=== PATIENT | female | born 1945 | race Asian ===

== ENCOUNTER 2016-11-12 19:15 | Observation (INO) | payer OTHER ==
[~2016-11-12] VITALS: Ht 165.1 cm; Wt 52.2 kg
[~2016-11-12 19:15] MED LIST: AMIT25TA22 PO; BACTRIM1 TAB PO; CLONAZEP ODT1 MG PO; CYCL10TA35 PO; DEMEROL50 MG PO; DIAZEPAM10 MG PO; DICY20TA34 PO; ENDOCET1 TA1 PO; FERROUS SULF325 M1 PO; FURO40TA93 PO; HYDR25TA60 PO; KLOR-CON M2020 MEQ PO; LABETALOL200 MG PO; LABETALOL300 MG OR; METO50TA27 PO; MOBIC7.5 M1 PO; MULTIVITAMI1 PO; PANT40TA PO; POTA20TA4 PO; REQUIP0.25 MG PO; RISP0.5T2 PO; SIMV20TA2 PO; TRAM50TA PO; XARELTO10 MG PO; ZESTRIL30 MG PO; ZESTRIL40 MG PO
[2016-11-12 19:45] VITALS: BP 137/76; TEMP 98.5
[2016-11-12] MEDS ORDERED: NUCYNTA75 MG PO (21:13)
[2016-11-12] MEDS ORDERED: ALPR0.2566 PO (21:13)
[2016-11-12] MEDS ORDERED: FURO20TA67 PO (21:14)
[2016-11-12] MEDS ORDERED: GRALISE600 MG OR (21:14)
[2016-11-12] MEDS ORDERED: AMITRIPTYLIN50 MG PO (21:15)
[2016-11-12] MEDS ORDERED: LABETALOL300 MG OR (21:15)
[2016-11-12] MEDS ORDERED: ONE DAILY ADULTS50 + OR (21:15)
[2016-11-12] MEDS ORDERED: NAMENDA10 MG OR (21:16)
[2016-11-12] MEDS ORDERED: LEXAPRO10 MG OR (21:17)
[2016-11-12 22:02] LABS: PLATELET COUNT 397 K/uL (152-353)
[2016-11-12 22:04] LABS: POTASSIUM 3.2 mmol/L (3.6-5.2)
[2016-11-13 02:24] VITALS: BP 154/68; TEMP 97.7; Ht 165.1 cm; Wt 52.2 kg
[2016-11-13 04:00] VITALS: BP 120/61; TEMP 98.6
[2016-11-13 08:14] VITALS: BP 130/65; TEMP 98.1
[2016-11-13 09:51] LABS: PLATELET COUNT 351 K/uL (152-353)
[2016-11-13 10:06] LABS: POTASSIUM 3.4 mmol/L (3.6-5.2); SODIUM 139 mmol/L (136-145)
[2016-11-13] MEDS ORDERED: FIORICET 50-3001 CAP PO (10:38)
[2016-11-13 11:59] VITALS: BP 131/69; TEMP 98
[2016-11-13 16:13] VITALS: BP 159/72; TEMP 98.1
[2016-11-13 20:00] VITALS: TEMP 98.1
[2016-11-14 01:03] VITALS: BP 119/73; TEMP 98.1
[2016-11-14 04:00] VITALS: BP 129/68; TEMP 98.1
[2016-11-14 05:00] LABS: PLATELET COUNT 337 K/uL (152-353)
[2016-11-14 05:29] LABS: POTASSIUM 2.7 mmol/L (3.6-5.2); SODIUM 144 mmol/L (136-145)
[2016-11-14 08:00] VITALS: BP 146/75; TEMP 98
[2016-11-14 12:00] VITALS: BP 150/84; TEMP 98.3
[2016-11-14 16:00] VITALS: BP 155/80; TEMP 97.9
== END 2016-11-14 18:16 | disposition home or self-care (01) ==
LOC: ED 19:15 → MED/SURG 23:14
PROVIDERS: Emergency Medicine; ADMIT Specialist
DX: R10.84 Generalized abdominal pain (principal); Q44.5 Other congenital malformations of bile ducts; E86.9 Volume depletion, unspecified
CPT/HCPCS: 36415; 80053; 81000; 82150; 83690; 83735; 84100; 85027; 86318; 96360; 96361; 96365; 96367; 96372; 96374; 99220; 99284; G0378; J1650; J2543; J3480; Q9963

== ENCOUNTER 2016-11-17 13:54 | Outpatient (CLI) | payer OTHER ==
[~2016-11-17 13:54] MED LIST changes: +ALPR0.2566 PO; +AMITRIPTYLIN50 MG PO; +FIORICET 50-3001 CAP PO; +FURO20TA67 PO; +GRALISE600 MG OR; +LEXAPRO10 MG OR; +NAMENDA10 MG OR; +NUCYNTA75 MG PO; +ONE DAILY ADULTS50 + OR
== END 2016-11-17 23:06 | disposition home or self-care (01) ==
LOC: MRI 13:54
DX: R10.31 Right lower quadrant pain (principal); R93.5 Abnormal findings on diagnostic imaging of other abdominal regions, including retroperitoneum

== ENCOUNTER 2017-01-15 21:38 | Emergency (ER) | payer OTHER ==
[~2017-01-15] VITALS: Ht 165.1 cm; Wt 57.2 kg
[2017-01-15 22:30] LABS: PLATELET COUNT 425 K/uL (152-353)
[2017-01-15 22:42] LABS: POTASSIUM 3.7 mmol/L (3.6-5.2); SODIUM 138 mmol/L (136-145)
[2017-01-16 01:26] VITALS: BP 168/98; TEMP 98.3
== END 2017-01-16 01:26 | disposition short-term general hospital (02) ==
LOC: ED 21:38
DX: J44.1 Chronic obstructive pulmonary disease with (acute) exacerbation (principal); I50.9 Heart failure, unspecified; R79.89 Other specified abnormal findings of blood chemistry
CPT/HCPCS: 36415; 36600; 80053; 82550; 82553; 82805; 83880; 84484; 85027; 93005; 96374; 96375; 99285; J1940; J2270; J2930

== ENCOUNTER 2017-01-16 01:32 | Outpatient (CLI) | payer OTHER | END 2017-01-16 02:15 | disposition short-term general hospital (02) | LOC: AMB 01:32 | DX: J44.1 Chronic obstructive pulmonary disease with (acute) exacerbation (principal); I50.9 Heart failure, unspecified; R79.89 Other specified abnormal findings of blood chemistry | CPT/HCPCS: A0425; A0429 ==

== ENCOUNTER 2017-04-29 17:02 | Outpatient (CLI) | payer OTHER | END 2017-04-29 19:08 | disposition home or self-care (01) | LOC: RAD 17:02 | DX: M25.511 Pain in right shoulder (principal) ==